=== PATIENT | female | born 1955 | race Hispanic/Latino ===

== ENCOUNTER → 2021-11-28 | Outpatient (CLI) | payer OTHER | END | disposition home or self-care (01) | LOC: RAH 12:30 | PROVIDERS: ATTEND Internal Medicine | DX: Z12.31 Encounter for screening mammogram for malignant neoplasm of breast (principal) | CPT/HCPCS: 77067 ==

== ENCOUNTER → 2023-01-16 | Outpatient (CLI) | payer OTHER | END | disposition home or self-care (01) | LOC: RAH 10:47 | PROVIDERS: ATTEND Internal Medicine | DX: S52.615A Nondisplaced fracture of left ulna styloid process, initial encounter for closed fracture (principal); M19.042 Primary osteoarthritis, left hand; X58.XXXA Exposure to other specified factors, initial encounter; Y93.89 Activity, other specified; Y92.89 Other specified places as the place of occurrence of the external cause; Y99.8 Other external cause status | CPT/HCPCS: 73110 ==

== ENCOUNTER → 2023-02-19 | Outpatient (CLI) | payer OTHER | END | disposition home or self-care (01) | LOC: RAH 11:04 | DX: Z12.31 Encounter for screening mammogram for malignant neoplasm of breast (principal) | CPT/HCPCS: 77067 ==

== ENCOUNTER → 2023-08-23 | Outpatient (CLI) | payer OTHER | END | disposition home or self-care (01) | LOC: RAH 15:00 | DX: M75.02 Adhesive capsulitis of left shoulder (principal) | CPT/HCPCS: 73030 ==

== ENCOUNTER → 2024-03-06 | Outpatient (CLI) | payer OTHER | END | disposition home or self-care (01) | LOC: RAH 08:42 | DX: Z12.31 Encounter for screening mammogram for malignant neoplasm of breast (principal) | CPT/HCPCS: 77067 ==

== ENCOUNTER → 2024-04-14 | Outpatient (CLI) | payer OTHER | END | disposition home or self-care (01) | LOC: RAH 13:45 | PROVIDERS: ATTEND Clinical Nurse Specialist Family Health | DX: N63.15 Unspecified lump in the right breast, overlapping quadrants (principal); R92.8 Other abnormal and inconclusive findings on diagnostic imaging of breast | CPT/HCPCS: 76641; 77065 ==

== ENCOUNTER → 2024-09-30 | Outpatient (CLI) | payer OTHER ==
--- NOTE | 2024-09-30 13:25 | HMCIMG ---
SHOULDER COMP 2+VWS LT REASON: PAIN IN LEFT SHOULDER TECHNIQUE: 3 views were obtained. FINDINGS: There is no evidence of fracture or dislocation. There is a small subacromial osteophyte, this can result in impingement in the appropriate clinical setting. The soft tissues appear unremarkable. There is no evidence of a radiopaque foreign body. IMPRESSION: 1. No acute finding. 2. Subacromial osteophyte.
--- NOTE | 2024-09-30 13:25 | HMCIMG ---
Exam: CERVICAL SPINE 2 VIEWS REASON: CERVICALGIA TECHNIQUE: 3 views were obtained. FINDINGS: There is mild interspace narrowing C5-6. There are mild degenerative changes of facets. Alignment is normal. There are no compression fractures. Soft tissues appear unremarkable as well. IMPRESSION: 1. Mild cervical degenerative changes, no acute finding.
== END | disposition home or self-care (01) ==
LOC: RAH 10:36
PROVIDERS: ATTEND Internal Medicine
DX: M47.812 Spondylosis without myelopathy or radiculopathy, cervical region (principal); M48.02 Spinal stenosis, cervical region; M25.712 Osteophyte, left shoulder; M54.2 Cervicalgia; M25.512 Pain in left shoulder
CPT/HCPCS: 72040; 73030

== ENCOUNTER → 2024-12-02 | Outpatient (CLI) | payer OTHER ==
--- NOTE | 2024-12-02 11:40 | HMCIMG ---
PROCEDURE: MAMMO DX UNILATERAL RIGHT, US BREAST COMPLETE UNILATERAL HISTORY: Follow-up COMPARISON: 04/14/2024 TECHNIQUE: Right breast digital diagnostic mammogram with CAD was performed. No additional views were obtained. Right breast ultrasound study was performed. FINDINGS: Microsurgical clip is seen in the retroareolar region of the right breast consistent with previous biopsy. There are scattered areas of fibroglandular density. There is no evidence of a dominant mass, or suspicious microcalcification. There is no evidence of nipple retraction or skin thickening. Right breast ultrasound study show no evidence of cystic or hypoechoic mass. Normal-appearing right axillary lymph node is seen. IMPRESSION: 1. Stable right breast mammogram. No cystic or hypoechoic mass is seen of the right breast. BI-RADS: CATEGORY 2: BENIGN FINDINGS Recommend monthly self breast exam as well as annual clinical examination. A negative x-ray should not delay biopsy if a dominant or clinically suspicious mass is present, since 8-10% of cancers are not identified by mammography. Dense breasts particularly, may obscure an underlying neoplasm. Some of these may be detected clinically and therefore, clinical examination is an essential part of breast evaluation.
== END | disposition home or self-care (01) ==
LOC: RAH 08:26
PROVIDERS: ATTEND Surgery Surgical Oncology
DX: N63.10 Unspecified lump in the right breast, unspecified quadrant (principal); R92.323 Mammographic fibroglandular density, bilateral breasts; R92.8 Other abnormal and inconclusive findings on diagnostic imaging of breast
CPT/HCPCS: 76641; 77065

== ENCOUNTER → 2025-01-06 | Outpatient (CLI) | payer OTHER ==
--- NOTE | 2025-01-06 11:58 | HMCIMG ---
BONE DENSITOMETRY: HISTORY: AGE-RELATED OSTEOPOROSIS W/O CURRENT PATHOLOGICAL FX Comparison: None FINDINGS: BMD measured at AP spine L1-L4 is 0.944 g/cm2 with a T-score of -0.9 Bone density is up to 10% below young normal. This patient is considered normal according to WHO criteria. Fracture risk is low. BMD measured at Left Femoral Neck is 0.695 g/cm2 with a T-score of -1.5 Bone density is between 10 and 25% below young normal. This patient is considered osteopenic. Fracture risk is moderate. BMD measured at Left Femoral Total is 0.750 g/cm2 with a T-score of -1.6 Bone density is between 10 and 25% below young normal. This patient is considered osteopenic. Fracture risk is moderate. IMPRESSION: Osteopenia. Treatment and follow-up recommended.
== END | disposition home or self-care (01) ==
LOC: RAH 08:01
DX: Z13.820 Encounter for screening for osteoporosis (principal); M85.852 Other specified disorders of bone density and structure, left thigh; M81.0 Age-related osteoporosis without current pathological fracture
CPT/HCPCS: 77080